=== PATIENT | female | born 1960 | race Caucasian/White ===

== ENCOUNTER 2020-06-26 07:58 | Day surgery (SDC) | payer OTHER ==
[2020-06-26 09:20] LABS: BASO % 0.3 % (0-2.0); EOS % 3.3 % (0-4.5); HEMATOCRIT 42.1 % (32.4-45.2); HEMOGLOBIN 14.2 GM/dL (10.7-15.3); LYMPH % 21.3 % (8-40); MCH 35.2 pg (25.7-33.7); MCHC 33.8 g/dl (32.0-36.0); MEAN CELL VOLUME 104.1 fl (80-96); MEAN PLT VOLUME 8.6 fl (7.5-11.1); MONO % 8.9 % (3.8-10.2); NEUT % 66.2 % (42.8-82.8); PLATELET COUNT 242 K/MM3 (134-434); RBC 4.05 M/mm3 (3.60-5.2); RDW 11.9 % (11.6-15.6)
[2020-06-26 09:56] LABS: POTASSIUM 3.8 mmol/L (3.5-5.1)
[2020-06-26 09:59] LABS: CALCIUM 9.6 mg/dL (8.5-10.1)
[2020-06-26 10:00] LABS: ALBUMIN 3.4 g/dl (3.4-5.0)
[2020-06-26 10:03] LABS: CREATININE 0.9 mg/dL (0.55-1.3)
[2020-06-26 10:04] LABS: BILIRUBIN,TOTAL 0.4 mg/dL (0.2-1)
[2020-06-26] MEDS ORDERED: ACETAMINOPHEN 500 MG TABLET (FP) PO ONE (10:30)
[2020-06-26] MEDS ORDERED: diphenhydrAMINE HCL 25 MG CAPSULE (FP) PO ONE (10:30)
[2020-06-26] MEDS ORDERED: methylPREDNISolone NA SUCC 125 MG/2 ML VIAL IVPUSH ONE (10:30)
[2020-06-26] MEDS ORDERED: RITUXIMAB-ABBS 1,000 MG in DEXTROSE 5%-WATER - 400 ML IVPB ONE (11:00)
[2020-06-26 16:48] VITALS: BP 129/88; PULSE 86; TEMP 97.9
== END 2020-06-26 16:00 | disposition home or self-care (01) ==
LOC: JCHEMO 07:58
PROVIDERS: ATTEND Internal Medicine Rheumatology
DX: M05.79 Rheumatoid arthritis with rheumatoid factor of multiple sites without organ or systems involvement (principal)
CPT/HCPCS: 36415; 80053; 85025; 96367; 96413; 96415; Q5115

== ENCOUNTER 2020-07-10 07:50 | Day surgery (SDC) | payer OTHER ==
[2020-07-10] MEDS ORDERED: RITUXIMAB-ABBS 1,000 MG in DEXTROSE 5%-WATER - 400 ML IVPB ONE (08:30)
[2020-07-10] MEDS ORDERED: methylPREDNISolone NA SUCC 125 MG/2 ML VIAL IVPUSH ONE (08:30)
[2020-07-10] MEDS ORDERED: diphenhydrAMINE HCL 25 MG CAPSULE (FP) PO ONE (08:30)
[2020-07-10] MEDS ORDERED: ACETAMINOPHEN 500 MG TABLET (FP) PO ONE (08:30)
[2020-07-10 08:51] LABS: BASO % 0.9 % (0-2.0); EOS % 2.4 % (0-4.5); HEMATOCRIT 41.3 % (32.4-45.2); HEMOGLOBIN 13.8 GM/dL (10.7-15.3); LYMPH % 24.3 % (8-40); MCH 33.9 pg (25.7-33.7); MCHC 33.3 g/dl (32.0-36.0); MEAN CELL VOLUME 101.8 fl (80-96); MEAN PLT VOLUME 8.7 fl (7.5-11.1); MONO % 4.5 % (3.8-10.2); NEUT % 67.9 % (42.8-82.8); PLATELET COUNT 223 K/MM3 (134-434); RBC 4.06 M/mm3 (3.60-5.2); RDW 12.1 % (11.6-15.6); WHITE BLOOD COUNT 5.3 K/mm3 (4.0-10.0)
[2020-07-10 09:09] LABS: POTASSIUM 4.2 mmol/L (3.5-5.1)
[2020-07-10 09:12] LABS: ALBUMIN 3.5 g/dl (3.4-5.0); CALCIUM 9.1 mg/dL (8.5-10.1)
[2020-07-10 09:13] LABS: BLOOD UREA NITROGEN 23.3 mg/dL (7-18)
[2020-07-10 09:16] LABS: CREATININE 0.9 mg/dL (0.55-1.3)
[2020-07-10 09:17] LABS: BILIRUBIN,TOTAL 0.4 mg/dL (0.2-1); TOT PROT 6.8 g/dl (6.4-8.2)
[2020-07-10 16:55] VITALS: BP 105/63; PULSE 75; TEMP 98.2
== END 2020-07-10 15:45 | disposition home or self-care (01) ==
LOC: JCHEMO 07:50
PROVIDERS: ATTEND Internal Medicine Rheumatology
DX: M05.79 Rheumatoid arthritis with rheumatoid factor of multiple sites without organ or systems involvement (principal)
CPT/HCPCS: 36415; 80053; 85025; 96367; 96413; 96415; Q5115

== ENCOUNTER 2021-02-05 08:35 | Day surgery (SDC) | payer OTHER ==
[2021-02-05 10:22] LABS: BASO % 0.6 % (0-2.0); EOS % 3.2 % (0-4.5); HEMATOCRIT 37.2 % (32.4-45.2); HEMOGLOBIN 12.8 GM/dL (10.7-15.3); LYMPH % 29.5 % (8-40); MCH 36.8 pg (25.7-33.7); MCHC 34.5 g/dl (32.0-36.0); MEAN CELL VOLUME 106.7 fl (80-96); MEAN PLT VOLUME 8.3 fl (7.5-11.1); MONO % 15.4 % (3.8-10.2); NEUT % 51.3 % (42.8-82.8); PLATELET COUNT 201 K/MM3 (134-434); RBC 3.48 M/mm3 (3.60-5.2); RDW 12.5 % (11.6-15.6); WHITE BLOOD COUNT 4.2 K/mm3 (4.0-10.0)
[2021-02-05 10:42] LABS: BLOOD UREA NITROGEN 23.4 mg/dL (7-18); CALCIUM 9.7 mg/dL (8.5-10.1)
[2021-02-05 10:43] LABS: ALBUMIN 3.3 g/dl (3.4-5.0)
[2021-02-05 10:46] LABS: CREATININE 0.7 mg/dL (0.55-1.3)
[2021-02-05 10:47] LABS: BILIRUBIN,TOTAL 0.3 mg/dL (0.2-1); TOT PROT 6.5 g/dl (6.4-8.2)
[2021-02-05] MEDS ORDERED: methylPREDNISolone NA SUCC 125 MG/2 ML VIAL IVPUSH ONE (11:30)
[2021-02-05] MEDS ORDERED: ACETAMINOPHEN 500 MG TABLET (FP) PO ONE (11:30)
[2021-02-05] MEDS ORDERED: diphenhydrAMINE HCL 25 MG CAPSULE (FP) PO ONE (11:30)
[2021-02-05] MEDS ORDERED: RITUXIMAB PVVR IVPB ONE (12:00)
[2021-02-05] MEDS ORDERED: WATER IVPB ONE (12:00)
[2021-02-05] MEDS ORDERED: DEXTROSE 5% IVPB ONE (12:00)
[2021-02-05 14:17] LABS: ANISOCYTOSIS 1+; MACROCYTOSIS 1+; OVALOCYTE 1+; PLATELET ESTIMATE NORMAL; TEAR DROP CELLS 1+
[2021-02-05 15:46] VITALS: TEMP 98.2
[2021-02-05 15:54] VITALS: BP 121/72; PULSE 78
== END 2021-02-05 15:40 | disposition home or self-care (01) ==
LOC: JINFUSION 08:35
PROVIDERS: ATTEND Internal Medicine Rheumatology
DX: M06.9 Rheumatoid arthritis, unspecified (principal)
CPT/HCPCS: 36415; 80053; 85025; 96375; 96413; 96415; Q5119

== ENCOUNTER 2021-02-20 08:20 | Day surgery (SDC) | payer OTHER ==
[2021-02-20 08:48] LABS: BASO % 0.7 % (0-2.0); HEMATOCRIT 41.8 % (32.4-45.2); HEMOGLOBIN 13.9 GM/dL (10.7-15.3); LYMPH % 34.1 % (8-40); MCH 35.2 pg (25.7-33.7); MCHC 33.3 g/dl (32.0-36.0); MEAN CELL VOLUME 105.8 fl (80-96); MEAN PLT VOLUME 8.4 fl (7.5-11.1); MONO % 13.1 % (3.8-10.2); NEUT % 48.1 % (42.8-82.8); PLATELET COUNT 237 10^3/uL (134-434); RBC 3.95 M/mm3 (3.60-5.2); WHITE BLOOD COUNT 4.1 K/mm3 (4.0-10.0)
[2021-02-20 09:14] LABS: CALCIUM 9.8 mg/dL (8.5-10.1)
[2021-02-20 09:16] LABS: ALBUMIN 3.5 g/dl (3.4-5.0); BLOOD UREA NITROGEN 20.5 mg/dL (7-18)
[2021-02-20 09:18] LABS: CREATININE 0.8 mg/dL (0.55-1.3)
[2021-02-20 09:20] LABS: BILIRUBIN,TOTAL 0.2 mg/dL (0.2-1); TOT PROT 6.8 g/dl (6.4-8.2)
[2021-02-20] MEDS ORDERED: methylPREDNISolone NA SUCC 125 MG/2 ML VIAL IVPUSH ONE (09:30)
[2021-02-20] MEDS ORDERED: diphenhydrAMINE HCL 25 MG CAPSULE (FP) PO ONE (09:30)
[2021-02-20] MEDS ORDERED: ACETAMINOPHEN 500 MG TABLET (FP) PO ONE (09:30)
[2021-02-20] MEDS ORDERED: RITUXIMAB-ABBS 1,000 MG in DEXTROSE 5%-WATER - 400 ML IVPB ONE (10:00)
[2021-02-20 11:22] LABS: ERYTHROCYTE SEDIMENTATION RATE 24 mm/hr (0-30)
[2021-02-20 16:55] VITALS: TEMP 98.2
[2021-02-20 17:05] VITALS: BP 118/70; PULSE 73
== END 2021-02-20 14:35 | disposition home or self-care (01) ==
LOC: JCHEMO 08:20
PROVIDERS: ATTEND Internal Medicine Rheumatology
DX: M06.9 Rheumatoid arthritis, unspecified (principal)
CPT/HCPCS: 36415; 80053; 85025; 85651; 96367; 96413; 96415; Q5115

== ENCOUNTER 2021-12-09 08:35 | Day surgery (SDC) | payer OTHER ==
[~2021-12-09 08:35] MED LIST: ACETAMINOPHEN 500 MG TABLET (FP) PO ONE; diphenhydrAMINE HCL 25 MG CAPSULE (FP) PO ONE; methylPREDNISolone NA SUCC 125 MG/2 ML VIAL IVPUSH ONE
[2021-12-09] MEDS ORDERED: RITUXIMAB 1,000 MG in DEXTROSE 5%-WATER - 400 ML IVPB ONE (09:00)
[2021-12-09] MEDS ORDERED: RITUXIMAB-ABBS 1,000 MG in DEXTROSE 5%-WATER - 400 ML IVPB ONE (09:00)
[2021-12-09 09:47] LABS: HEMATOCRIT 37.8 % (32.4-45.2); HEMOGLOBIN 12.8 GM/dL (10.7-15.3); MCH 36.6 pg (25.7-33.7); MCHC 33.7 g/dl (32.0-36.0); MEAN CELL VOLUME 108.6 fl (80-96); MEAN PLT VOLUME 7.7 fl (7.5-11.1); PLATELET COUNT 291 10^3/uL (134-434); RBC 3.48 M/mm3 (3.60-5.2); RDW 14.6 % (11.6-15.6); WHITE BLOOD COUNT 4.3 K/mm3 (4.0-10.0)
[2021-12-09 10:12] LABS: CALCIUM 9.7 mg/dL (8.5-10.1)
[2021-12-09 10:13] LABS: ALBUMIN 3.4 g/dl (3.4-5.0); BLOOD UREA NITROGEN 24.7 mg/dL (7-18)
[2021-12-09 10:16] LABS: CREATININE 0.9 mg/dL (0.55-1.3)
[2021-12-09 10:17] LABS: BILIRUBIN,TOTAL 0.2 mg/dL (0.2-1); TOT PROT 6.6 g/dl (6.4-8.2)
[2021-12-09 10:46] LABS: ERYTHROCYTE SEDIMENTATION RATE 29 mm/hr (0-30)
[2021-12-09 15:14] VITALS: TEMP 98
[2021-12-09 15:15] VITALS: BP 111/69; PULSE 72
== END 2021-12-09 15:00 | disposition home or self-care (01) ==
LOC: J7W 08:35 → JINFUSION 08:35
PROVIDERS: ATTEND Internal Medicine Rheumatology
DX: M06.9 Rheumatoid arthritis, unspecified (principal)
CPT/HCPCS: 36415; 80053; 85027; 85651; 96413; 96415; J9312

== ENCOUNTER 2021-12-23 08:37 | Day surgery (SDC) | payer OTHER ==
[2021-12-23] MEDS ORDERED: RITUXIMAB 1,000 MG in DEXTROSE 5%-WATER - 400 ML IVPB ONE (09:00)
[2021-12-23 14:57] VITALS: BP 127/71; PULSE 77; TEMP 97.4
== END 2021-12-23 14:45 | disposition home or self-care (01) ==
LOC: JINFUSION 08:37 → J7W 08:38 → JINFUSION 14:45
PROVIDERS: ATTEND Internal Medicine Rheumatology
DX: M05.9 Rheumatoid arthritis with rheumatoid factor, unspecified (principal)
CPT/HCPCS: 96375; 96413; 96415; J9312

== ENCOUNTER 2022-06-16 09:13 | Day surgery (SDC) | payer OTHER ==
[~2022-06-16 09:13] MED LIST changes: +METHYLPREDNISOLONE NA SUCC 100 MG in SODIUM CHLORIDE 50 ML IVPB ONE; +RITUXIMAB 1,000 MG in DEXTROSE 5%-WATER - 400 ML IVPB ONE; -methylPREDNISolone NA SUCC 125 MG/2 ML VIAL IVPUSH ONE
[2022-06-16] MEDS ORDERED: ACETAMINOPHEN 500 MG TABLET (FP) PO ONE (10:00)
[2022-06-16] MEDS ORDERED: METHYLPREDNISOLONE NA SUCC 100 MG in SODIUM CHLORIDE 50 ML IVPB ONE (10:00)
[2022-06-16] MEDS ORDERED: diphenhydrAMINE HCL 25 MG CAPSULE (FP) PO ONE (10:00)
[2022-06-16] MEDS ORDERED: RITUXIMAB 1,000 MG in DEXTROSE 5%-WATER - 400 ML IVPB ONE (10:30)
[2022-06-16 14:55] VITALS: BP 135/75; PULSE 72; RESP 18; TEMP 97.5
== END 2022-06-16 14:56 | disposition home or self-care (01) ==
LOC: JINFUSION 09:13 → J7W 09:15 → JINFUSION 14:56
PROVIDERS: ATTEND Internal Medicine Rheumatology
DX: M05.9 Rheumatoid arthritis with rheumatoid factor, unspecified (principal)
CPT/HCPCS: 96367; 96413; 96415; J9312

== ENCOUNTER 2022-08-18 08:51 | Day surgery (SDC) | payer OTHER ==
[2022-08-18] MEDS ORDERED: ACETAMINOPHEN 500 MG TABLET (FP) PO ONE (09:45)
[2022-08-18] MEDS ORDERED: METHYLPREDNISOLONE NA SUCC 100 MG in SODIUM CHLORIDE 50 ML IVPB ONE (09:45)
[2022-08-18] MEDS ORDERED: diphenhydrAMINE HCL 25 MG CAPSULE (FP) PO ONE (09:45)
[2022-08-18] MEDS ORDERED: RITUXIMAB 1,000 MG in DEXTROSE 5%-WATER - 400 ML IVPB ONE (10:15)
[2022-08-18 15:08] VITALS: BP 105/68; PULSE 83; RESP 18; TEMP 98.5
== END 2022-08-18 15:16 | disposition home or self-care (01) ==
LOC: JINFUSION 08:51 → J7W 08:52 → JINFUSION 15:16
PROVIDERS: ATTEND Internal Medicine Rheumatology
PROC: 3E03305 Introduction of Other Antineoplastic into Peripheral Vein, Percutaneous Approach (ICD-10-PCS; principal; 2022-08-18)
PROC: 3E033GC Introduction of Other Therapeutic Substance into Peripheral Vein, Percutaneous Approach (ICD-10-PCS; 2022-08-18)
DX: M05.29 Rheumatoid vasculitis with rheumatoid arthritis of multiple sites (principal)
CPT/HCPCS: 96375; 96413; 96415; J9312

== ENCOUNTER 2023-02-09 10:04 | Day surgery (SDC) | payer OTHER ==
[~2023-02-09 10:04] MED LIST changes: -RITUXIMAB 1,000 MG in DEXTROSE 5%-WATER - 400 ML IVPB ONE
[2023-02-09] MEDS ORDERED: RITUXIMAB-ABBS 1,000 MG in DEXTROSE 5%-WATER - 400 ML IVPB ONE (10:30)
[2023-02-09] MEDS ORDERED: RITUXIMAB 1,000 MG in DEXTROSE 5%-WATER - 400 ML IVPB ONE (11:00)
[2023-02-09 11:07] LABS: BASO % 0.6 % (0-2.0); EOS % 2.4 % (0-4.5); HEMATOCRIT 37.7 % (32.4-45.2); HEMOGLOBIN 12.7 GM/dL (10.7-15.3); LYMPH % 10.5 % (8-40); MCHC 33.7 g/dl (32.0-36.0); MEAN CELL VOLUME 109.7 fl (80-96); MEAN PLT VOLUME 8.8 fl (7.5-11.1); NEUT % 81.5 % (42.8-82.8); PLATELET COUNT 225 10^3/uL (134-434); RBC 3.44 M/mm3 (3.60-5.2); WHITE BLOOD COUNT 6.9 K/mm3 (4.0-10.0)
[2023-02-09 11:33] LABS: POTASSIUM 4.4 mmol/L (3.5-5.1)
[2023-02-09 11:35] LABS: CALCIUM 10.6 mg/dL (8.5-10.1)
[2023-02-09 11:36] LABS: ALBUMIN 3.4 g/dl (3.4-5.0); BLOOD UREA NITROGEN 21.4 mg/dL (7-18)
[2023-02-09 11:39] LABS: CREATININE 0.7 mg/dL (0.55-1.3)
[2023-02-09 11:40] LABS: BILIRUBIN,TOTAL 0.2 mg/dL (0.2-1); TOT PROT 6.4 g/dl (6.4-8.2)
[2023-02-09 14:15] LABS: ANISOCYTOSIS 1+; MACROCYTOSIS 1+
[2023-02-09 17:46] VITALS: BP 156/88; PULSE 76; RESP 18; TEMP 98
== END 2023-02-09 17:00 | disposition home or self-care (01) ==
LOC: JINFUSION 10:04 → J7W 10:05 → JINFUSION 17:00
PROVIDERS: ATTEND Internal Medicine Rheumatology
DX: M06.9 Rheumatoid arthritis, unspecified (principal)
CPT/HCPCS: 36415; 80053; 85025; 96367; 96413; 96415; J9312